=== PATIENT | female | born 1935 | race Caucasian/White ===

== ENCOUNTER → 2024-07-30 10:35 | Outpatient (REF) | payer MEDICARE, SELFPAY | LOC: RAD 10:35 | PROVIDERS: ATTENDING PHYSICIAN Nurse Practitioner Family | DX: M81.0 Age-related osteoporosis without current pathological fracture (principal); E01.1 Iodine-deficiency related multinodular (endemic) goiter | CPT/HCPCS: 76536 ==

== ENCOUNTER 2025-04-10 14:46 | Observation (INO) | payer MEDICARE, OTHER, SELFPAY ==
[2025-04-10] VITALS (11 sets, daily range): BP systolic 123–183; BP diastolic 61–102; PULSE 72–83; O2SAT 91; BMI 27.6
--- NOTE | 2025-04-10 07:02 | ED.GENMED ---
History of Present Illness
General
Chief Complaint: Fall
Time Seen by Provider: 04/10/25 07:02
History of Present Illness
History of Present Illness:
TIME OF INITIAL EVALUATION
- 7:05 AM
REVIEW OF OLD RECORDS
- The patient has a history of high blood pressure, diverticular disease, CKD, partial sigmoid resection related to perforation. The patient was admitted with hyponatremia in August 2023.
Note:
CHIEF COMPLAINT(S)
Pain following a fall.
HISTORY OF PRESENT ILLNESS
The patient is an 89-year-old female who presented to the emergency department with pain after experiencing a fall. She attempted to grab onto a dresser to prevent the fall but was unsuccessful. The fall resulted in pain primarily in the left hip
area. The patient reports bruising on the outside part of her hand. She denies any head trauma but describes ongoing neck pain on the left side, which is constant and extends to the shoulder. The patient experienced discomfort in her left hip, with
difficulty and increased pain upon attempting to move or lift it. She confirms mild pain on the right side but without significant symptoms. She appears generally uncomfortable and was noted to have dry lips, suggesting possible dehydration. She
states that she did not strike her head but she does have acute on chronic neck pain
PHYSICAL EXAM
- General: Appears uncomfortable
- Head: No craniofacial trauma
- C-spine: C-collar in place, some vague questionable tenderness to palpation of the posterior neck
- Back: Normal AROM thoracolumbar spine
- HEENT: Very dry oral mucosa, no blood
- Cardiovascular: No murmurs, normal heart rate, regular rhythm, No chest wall tenderness
- Pulmonary: No respiratory distress, breath sounds are clear and equal
- Abdomen: Soft with no peritoneal signs, no tenderness
- Neurologic: Good strength all extremities, no coordination deficits
- Psychiatric: Appropriate mental status, normal insight and judgement
- Extremities: Ecchymosis and tenderness noted to the lateral aspect of the left hand, markedly decreased active range of motion into flexion at the left hip, only mild pain with passive range of motion into rotation at the left hip
- Skin: No rash, no lesions
PLAN
1. Initiate an intravenous line for hydration due to apparent dehydration.
2. Obtain blood work to assess overall health and potential underlying conditions.
3. Conduct an X-ray on the hand, hip, and pelvis to evaluate for fractures or dislocations.
4. Perform a CT scan of the neck and head to rule out any potential injuries from the fall not visible on physical examination.
5. Administer pain relief medication with the addition of anti-nausea medication to prevent medication-induced nausea.
DIFFERENTIAL DIAGNOSIS
The Differential Diagnosis includes, in no particular order and is not limited to:
1. Hip fracture
2. Shoulder sprain or fracture
3. Bruising and contusions
4. Musculoskeletal strain
5. Dehydration
6. Neck strain or cervical injury
7. Pelvic fracture
8. Osteoporosis-related bone injury
9. Slight concussion (despite denial of head injury)
10. Generalized weakness due to age-related factors
I discussed with Dr. Bejarano who recommends weight-bear as tolerated and agrees with obtaining CT of the pelvis. The patient however cannot weight-bear at all and cannot even attempt to move off the stretcher.
RADIOLOGY
- X-ray shows left inferior pubic ramus fracture; I see no clear sign of fracture on the left hand and left wrist x-rays.
- CT imaging confirms superior and inferior pubic rami fracture on the left with extension toward the acetabulum
LABS
- White count 16.3, hemoglobin 11.1, chemistries relatively unremarkable
UPDATE
-SUMMARY OF ENCOUNTER
The patient, an 89-year-old female, was seen in the emergency department after experiencing a fall that resulted in pain predominantly in her left hip and neck area. Assessment revealed left-sided pelvic rami fractures and a left upper extremity
injury without fracture. She also displayed signs of potential dehydration. Her presentation included significant ongoing pain, particularly affecting her ability to utilize a walker effectively.
DISPOSITION
Discharge with follow-up recommendations.
ASSESSMENT
1. Left-sided pelvic rami fractures.
2. Significant musculoskeletal pain likely limiting the use of a walker.
3. Potential dehydration.
MANAGEMENT OF THE PATIENTS CARE WAS DISCUSSED WITH
Dr. Phillip, who recommended weight-bearing as tolerated with a walker and follow-up in four weeks. Consultation with physical therapy (PT) and occupational therapy (OT) was also initiated for further care management.
PLAN
1. Initiate intravenous hydration to address potential dehydration.
2. Pain management to address significant discomfort.
3. Consult PT and OT to assist with mobility and rehabilitation, given limited upper extremity function and the need for assistive devices.
4. Discharge with recommendations to weight-bear as tolerated using a walker.
5. Follow-up in four weeks to reassess the pelvic fractures and recovery progress.
INDEPENDENT REVIEW OF LABS AND INTERPRETATION OF TESTS
My independent interpretation of pelvic x-ray indicates left-sided pelvic rami fractures.
PATIENT EDUCATION AND COUNSELING
The patient was advised on the importance of pain management, staying hydrated, and utilizing a walker as per tolerance to mobilize safely. The care plan, including PT and OT consultations, was explained for effective rehabilitation.
FOLLOW-UP INSTRUCTIONS
The patient is to follow up in four weeks for reassessment of progress and evaluation of pelvic fractures.
MEDICATION RECONCILIATION
Pain relief medication and anti-nausea medication prescribed to manage discomfort and prevent nausea.
MEDICAL DECISION MAKING
-Complexity of Data Reviewed: Chronic conditions affecting care include potential osteoporosis-related bone injury and dehydration. Differential diagnoses considered include hip fracture, shoulder sprain, bruising and contusions, neck strain or
cervical injury, pelvic fracture, osteoporosis-related bone injury, and generalized weakness due to age.
-Data:
Category 1:
My independent interpretation of pelvic x-ray indicates left-sided pelvic rami fractures.
Category 3:
Discussion of management with Dr. Phillip concerning weight-bearing recommendations and coordinating PT and OT consultations.
-Risk:
Prescription medication management for pain relief. Consideration of Admission/Observation: Escalation of care including admission/observation was considered given the complexity and risk of the patients presenting complaint, exam findings, and
their underlying comorbidities. However, ultimately I feel the patient is safe for outpatient management with close follow-up. Reasoning: Work-up does not reveal any acute life/organ-threatening processes, patients symptoms are well-controlled upon
reevaluation, reexamination is reassuring, patient agreeable with discharge, reliable for follow-up.
DIAGNOSIS
1. Fracture of the pelvis, ICD-10: S32.89XA
2. Injury of the upper extremity, unspecified without fracture, ICD-10: T14.8
3. Dehydration, ICD-10: E86.[address] Phillip who initially recommended weight-bear as tolerated and can follow-up with her office in 4 weeks however the patient has rather debilitating pain. She did not want to try IV narcotic analgesia. We did try IV Toradol and IV
Tylenol. She could not work with PT OT due to severe pain. I did contact care management and there are no beds available at [facility]. The patient also expressed no willingness to go elsewhere at this time due to severe pain.
Past History
Past History
ED Past Medical History: Cancer (Skin), GERD, HTN, Hypercholesterolemia, Renal failure (Chronic kidney disease), Psychiatric (Anxiety, Depression) and Other (Osteoarthritis, spinal stenosis, psoriasis, cataracts, gout, hyponatremia, tuberculosis,
diverticulitis, UTI, Anemia, Diverticulitis, Vertigo)
ED Past Surgical History: Bowel resection (Sigmoid colon), Cholecystectomy and Other (Hernia repair)
Social History
Tobacco: Non-smoker
Alcohol: None
Drug: None
Personal:
Living: with family (Daughter)
Employment: Retired
Phy Exam
Physical Exam
Physical Exam:
See HPI
Course
Orders/Labs/Results
Orders:
Orders
04/10/25 07:03
CT Cervical Spine W/o Iv Contr Urgent
Comment:
Reason For Exam: fall
CT Head W/o Iv Contrast Urgent
Comment:
Reason For Exam: fall
Hip, Left 2-3 Views [CR Hip - LT w/wo Pel 2-3 Vw*] Urgent
Comment:
Reason For Exam: fall and pain
Include a pelvis x-ray?: Yes
04/10/25 07:21
CR Hand - Left Min 3 Views Urgent
Comment:
Reason For Exam: pain trauma
04/10/25 07:22
0.9% Sodium Chloride 500 ml [Nss] 500 ml IV BOLUS
HYDROmorphone [Dilaudid] 0.5 mg IV NOW STA
Ondansetron Injectable [Zofran] 4 mg IV NOW STA
04/10/25 07:24
CR Wrist - Left Min 3 Views Urgent
Comment:
Reason For Exam: trauma
04/10/25 07:46
Basic Metabolic Panel Urgent
Complete Blood Count/With Diff Urgent
04/10/25 07:57
Ketorolac [Toradol] 15 mg IV NOW STA
04/10/25 08:51
CT Pelvis W/o Iv Contrast Urgent
Comment:
Reason For Exam: eval pelvis fx
04/10/25 09:06
Case Management Consult ONCE
Case Management Consult: Discharge Planning
04/10/25 10:29
Physical Therapy Consult [Pt Eval And Treat] Urgent
Activity Level: Ambulate
04/10/25 10:39
OT Consult [Ot Eval And Treat] Urgent
Treatment: wbat
04/10/25 12:18
Acetaminophen 1000MG/100Ml [Ofirmev] 1,000 mg in 100 ml IV ONCE
Acetaminophen IV Indication:: ED Narcotic Naive Pt-ONCE
Abnormal Lab Results
04/10/25
07:46
WBC 16.3 H 10^3/uL
(4.8-10.8)
RBC 3.30 L 10^6/uL
(4.20-5.40)
Hgb 11.1 L g/dL
(12.0-16.0)
Hct 30.7 L %
(37.0-47.0)
MCH 33.6 H pg
(27.0-31.0)
Abs Immat Gran (auto) 0.2 H 10^3/uL
(0-0.05)
Absolute Neuts (auto) 13.8 H 10^3/uL
(1.4-6.5)
Absolute Monos (auto) 0.8 H 10^3/uL
(0.1-0.6)
Immature Gran % 1.1 H %
(0-0.5)
Neutrophils % 84.5 H %
(42.2-75.2)
Lymphocytes % 7.9 L %
(20.5-51.1)
Sodium 131 L mmol/L
(135-145)
BUN 25 H mg/dl
(7-17)
Glucose 126 H mg/dl
(70-99)
04/10/25 07:46
04/10/25 07:46
Vital Signs
Initial and Last Documented VS:
Initial Vital Signs
Temp Pulse Resp BP Pulse Ox
36.4 C 72 16 179/86 92
04/10/25 07:05 04/10/25 07:05 04/10/25 07:05 04/10/25 07:05 04/10/25 07:05
Last Documented Vital Signs
Temp Pulse Resp BP Pulse Ox
36.4 C 81 16 171/102 91
04/10/25 07:05 04/10/25 12:08 04/10/25 10:03 04/10/25 11:00 04/10/25 11:09
*Pulse Oximetry
Patient hypoxic: no
*Critical Care Note
Total Time (30-74mins, 75-104mins- exclusive of procedures): Not Applicable
ED Attending Note
-
Portions of this chart may have been created with voice recognition software.� Occasional wrong word or��sound alike� substitutions may have occurred due to the inherent limitations of voice recognition software.
Discharge Plan
Departure
Prescriptions:
No Action
rosuvastatin 5 MG tablet
5 mg PO QPM
allopurinol 100 MG tablet
100 mg PO DAILY
alprazolam [Xanax] 0.5 mg Tablet
0.25 mg PO NOON
mirtazapine 30 mg Tablet
30 mg PO HS 30 Days Qty: 30 0RF
furosemide 20 mg tablet
20 mg PO DAILY
gabapentin 100 mg Capsule
100 mg PO TID
lactulose 10 gram/15 mL Solution
10 - 15 g PO Q48H
labetalol 200 mg Tablet
200 mg PO BID
Referrals:
Fahad Zimmerman MD [Family Provider, Internal Medicine]
Interventions
Interventions:
*Risk Screen - Suicide Last Done: 04/10/25 07:07
*General Assessment Last Done: 04/10/25 07:07
*Neglect/Abuse Screening Last Done: 04/10/25 07:07
*ED- Fall Risk Assessment Last Done: 04/10/25 07:07
*ED COVID-19 Vaccine History Last Done: 04/10/25 07:07
ED-Musculoskeletal Assessment Last Done: 04/10/25 07:07
ED- Neurological Assessment Last Done: 04/10/25 07:07
ED-Skin Assessment Last Done: 04/10/25 07:08
Discharge Date and Time
Print Language: BURUNDIAN
[2025-04-10] MEDS: ZOFRAN 4 MG IV (07:51)
[2025-04-10] MEDS: NSS 500 IV (07:51)
[2025-04-10 07:53] LABS: Hematocrit 30.7 % (37.0-47.0); Hemoglobin 11.1 g/dL (12.0-16.0); Mean Corp Hgb Conc. 36.2 g/dL (33.0-37.0); Mean Corpuscular Volume 93.0 fL (81.0-99.0); Nucleated Red Blood Cells % 0 %; Platelet Count 174 10^3/uL (130-400); Red Cell Dist. Width 13.1 % (11.5-14.5)
[2025-04-10] MEDS: TORADOL 15 MG IV (08:01)
[2025-04-10 08:16] LABS: Blood Urea Nitrogen 25 mg/dl (7-17); Calcium 9.1 mg/dl (8.4-10.2); Carbon Dioxide 23 mmol/L (22-30); Chloride 103 mmol/L (98-107); Estimated Creatinine Clearance 54 ml/min; Glucose 126 mg/dl (70-99); Sodium 131 mmol/L (135-145); eGFR > 60.00
[2025-04-10] MEDS: OFIRMEV 100 IV (12:21)
--- NOTE | 2025-04-10 13:09 | CM ---
Addendum entered by Shu Cates 04/10/25 15:00:
Patient daughter seen at bedside, OBS/CAMERON form completed and scanned into chart by mechanical unit repairer. Patient daughter aware of need for SNF but she and daughter concerned about pain and requested to talk to nursing. CM will continue to follow for
discharge planning needs.
Plan; SNF
Original Note:
Patient seen at bedside in ED. Patient states that she fell as she dropped her cane and then fell over it. Patient lives in the independent apartment at [facility]. Patient states that he PCP is Dr. Christopher and she uses the [facility] in [place] for
her pharmacy needs.
Patient stated that she is so much pain she is not able to go anywhere other than the hospital. CM spoke with hema Harrison at [facility]. No beds currently available; Liaison recommended; [facility], [facility], [facility] or [facility]. CM spoke with ED physician and update provided. Patient would be private pay if discharged today, or if OBS/CAMERON. CM awaiting update from hospitalist. CM will call patient daughter and review plan. CM will continue to follow for discharge
planning needs.
Plan; SNF; for [facility] pending medical treatment plan
--- NOTE | 2025-04-10 13:37 | HPS.HSE ---
Family Physician
-
Family Physician: Fahad Zimmerman MD
Chief Complaint
-
hip pain
History of Present Illness
89-year-old female past medical history of chronic hyponatremia, hypertension, anxiety, CKD 3, insomnia, chronic pruritus, chronic neck pain, presenting with left hip pain after a fall. She attempted to grab onto a dresser to prevent the fall but
was unsuccessful. She has pain primarily in the left hip also has some bruising on the outside part of her hand. Denies any head trauma but has ongoing neck pain on the left side which is constant and extends to the shoulder. She has some mild
pain on the right side of her hip.
She does not smoke or drink alcohol.
Medical History
Past Medical History
Past Medical History: Reports Other (chronic hyponatremia, hypertension, anxiety, CKD 3, insomnia, chronic pruritus, chronic neck pain)
Past Surgical History: Reports None
Social History
Tobacco: Non-smoker
Alcohol: None
Drug: None
Family History
Family History: Not pertinent
Allergies / Home Medications
Allergies reflects when Allergies were last updated in [employer].
Home Medications with original date entered in [employer]
Allergy/Medication List:
Allergies
Allergy/AdvReac Type Severity Reaction Status Date / Time
diphenhydramine (From Allergy Unknown Verified 04/10/25 07:56
Benadryl)
latex Allergy Rash Verified 07/30/23 20:50
Opioids - Morphine Analogues Allergy Nausea / Verified 07/30/23 20:50
Vomiting
Home Medications
rosuvastatin 5 mg tablet 5 mg PO QPM High cholesterol 06/21/20
allopurinol 100 mg tablet 100 mg PO DAILY Gout 01/20/21
alprazolam 0.5 mg tablet (Xanax) 0.25 mg PO NOON Mental Health/Anxiety 06/12/22
mirtazapine 30 mg tablet 30 mg PO HS 30 days #30 tabs 06/15/22
furosemide 20 mg tablet 20 mg PO DAILY Fluid Retention/Swelling 07/05/23
gabapentin 100 mg capsule 100 mg PO TID Pain 08/01/23
lactulose 10 gram/15 mL oral solution 10 - 15 g PO Q48H Liver Issues 08/01/23
labetalol 200 mg tablet 200 mg PO BID Blood Pressure 08/23/23
Review of Systems
-
History Source: Patient
A 12 point ROS was completed and negative except as noted: Yes
Constitutional: Reports No Symptoms
EENT: Reports No Symptoms
Respiratory: Reports No Symptoms
Cardiac: Reports No Symptoms
Abdomen/GI: Reports No Symptoms
: Reports No Symptoms
Musculoskeletal: Reports See HPI
Skin: Reports No Symptoms
Neurological: Reports No Symptoms
Endocrine: Reports No Symptoms
Hematologic/Lymphatic: Reports No Symptoms
Psych: Reports No Symptoms
Physical Exam
Vital Signs
Vital Signs
Temp Pulse Resp BP Pulse Ox
97.6 F 81 16 177/75 91
04/10/25 07:05 04/10/25 12:08 04/10/25 10:03 04/10/25 13:00 04/10/25 11:09
Physical Exam
General: Well Developed, Well Nourished and No Apparent Distress
HEENT: NormoCephalic, Moist mucous membranes and Atraumatic
Respiratory: Clear
Cardiac: S1/S2 and Regular Rhythm; No Murmur or Rub
GI: Soft, Non Tender, Non Distended and Normal Bowel Sounds; No Organomegaly
Rectal: Deferred by Provider
Musculoskeletal: No Clubbing, No Cyanosis and No Edema
Skin: No Rash
Neuro: Nonfocal/grossly intact
Laboratory Results
-
04/10/25 07:46
04/10/25 07:46
Data Reviewed
-
Lab Data: Labs Reviewed by me
Old Records: Reviewed
Impression/Plan
-
IMPRESSION:
PLAN:
# Acute left superior inferior pubic rami fractures
# Possible right inferior pubic rami fracture
-Leukocytosis likely reactive
- Pelvic CT shows acute left superior and inferior pubic rami fractures with small extraperitoneal pelvic hematoma
- Tylenol, Toradol
-Try 0.25 mg of Dilaudid although patient has had nausea previously
- Ortho recommended weightbearing as tolerated
- PT OT
- Patient unable to be placed today
# Left wrist pain
- X-ray shows no fracture
# Acute on chronic neck pain
- CT head and CT cervical spine shows no acute abnormality
# Stable mild T4 compression fracture
#Hypovolemia
-dry on exam, IV fluids given
Chronic hyponatremia
-Sodium stable at 131
Essential hypertension
- Continue labetalol
Anxiety
- Continue mirtazapine, Xanax
CKD 3
- Renal function baseline
Gout
- Continue allopurinol
Insomnia
Chronic pruritus
Chronic neck pain
Full code
DVT prophylaxis heparin
Regular diet
[2025-04-10] MEDS: TORADOL 10 MG IV (16:57)
[2025-04-10] MEDS: HEPARIN 5000 UNITS SC (20:37)
[2025-04-10] MEDS: TRANDATE 200 MG PO (20:37)
[2025-04-10] MEDS: NEURONTIN 100 MG PO (20:37)
[2025-04-10] MEDS: AMBIEN 10 MG PO (21:24)
[2025-04-10] MEDS: XANAX 0.125 MG PO (21:24)
[2025-04-10] MEDS: REMERON 30 MG PO (21:24)
[2025-04-11] MEDS: TORADOL 10 MG IV (02:13)
[2025-04-11 06:51] LABS: Hematocrit 29.3 % (37.0-47.0); Hemoglobin 10.4 g/dL (12.0-16.0); Mean Corp Hgb Conc. 35.5 g/dL (33.0-37.0); Mean Corpuscular Volume 95.1 fL (81.0-99.0); Nucleated Red Blood Cells % 0 %; Platelet Count 152 10^3/uL (130-400); Red Cell Dist. Width 13.3 % (11.5-14.5)
[2025-04-11 07:16] LABS: ALT (SGPT) 16 U/L (0-35); AST (SGOT) 27 U/L (14-36); Albumin 3.8 g/dl (3.5-5.0); Alkaline Phosphatase 73 U/L (38-126); Blood Urea Nitrogen 26 mg/dl (7-17); Calcium 8.7 mg/dl (8.4-10.2); Carbon Dioxide 24 mmol/L (22-30); Chloride 101 mmol/L (98-107); Estimated Creatinine Clearance 38 ml/min; Glucose 115 mg/dl (70-99); Potassium 4.5 mmol/L (3.5-5.1); Sodium 131 mmol/L (135-145); Total Protein 6.3 g/dl (6.3-8.2); eGFR 54.19
[2025-04-11] MEDS: LASIX 20 MG PO (07:20)
[2025-04-11] MEDS: ZYLOPRIM 100 MG PO (07:20)
[2025-04-11] MEDS: TRANDATE 200 MG PO (07:20)
[2025-04-11] MEDS: NEURONTIN 100 MG PO (07:20)
[2025-04-11] MEDS: HEPARIN 5000 UNITS SC (07:20)
[2025-04-11] MEDS: CRESTOR 5 MG PO (07:20)
[2025-04-11] MEDS: DUPHALAC/CHRONULAC 10 GRAMS PO (07:21)
[2025-04-11 07:30] VITALS: BP 155/78
--- NOTE | 2025-04-11 09:05 | W.PN.HOSP.TC ---
Addendum entered and electronically signed by Jarad Lewis MD 04/11/25 13:29:
Total time spent on d/c = 31 min. This included today's physical exam, progress note, review of laboratory and diagnostic data, preparation of discharge documents and prescriptions, and discussions about the pt's hospital course and discharge plan
with the patient and other medical center representative involved in the patient's care.
Original Note:
Today's Communication/Plan
-
d/c
Assessment / Plan
Assessment / Plan
Gen: NAD, Awake and alert
Eyes: EOMI, PERRLA, no scleral icterus.
Neck: supple.
CV: RRR, +S1/S2, no m/r/g.
Resp: CTAB, no rales, wheezes, or rhonchi.
Abd: +BS, soft, NT, ND
Skin: No rashes.
Neuro: CN 2-12 intact, non-focal.
Psych: Normal mood and affect.
CT pelvis: Acute left superior and inferior pubic ramus bone fractures. New. Associated small extraperitoneal pelvic hematoma. New. Possible right inferior pubic ramus bone fracture. Limited evaluation. Patient motion artifact. New. Clinical
correlation recommended. ADDENDUM: Best seen on coronal images, there is suggestion of a fracture of the left superior pubic ramus bone laterally, at the junction with the acetabulum. There is mild associated sclerosis, the fracture line is less
sharp and margins are more smooth. This may be a subacute fracture. Clinical correlation recommended.
Acute left superior and inferior pubic rami fractures with small extraperitoneal pelvic hematoma:
-with possible right inferior pubic rami fracture
-Leukocytosis was reactive and has resolved
-ortho recommended weightbearing as tolerated
-PT/OT
-pt was unable to be placed from the ER
Hypovolemia:
-admitting physician state pt was dry on exam yet lasix continued
-s/p 500cc NS on admission
-appears euvolemic at this moment, cont Lasix with h/o hyponatremia
Other problems:
Left wrist pain: X-ray without fx
Acute on chronic neck pain: CT head and C-spine without acute abnormality
Stable mild T4 compression fracture
Chronic hyponatremia, mild, trend
Essential HTN: cont BB
Anxiety: cont mirtazapine/Xanax
Gout: cont allopurinol
Insomnia
Chronic pruritus
Chronic neck pain
FULL/heparin
No medical indication for hospitalization, remains medically cleared for discharge. Case management aware.
Anticipated Discharge: Today
Subjective/Interval History
-
Date of Service: April 11, 2025
No new complaints.
Objective Data
-
Labs:
Laboratory Results
04/11/25
06:28
WBC 8.5
Hgb 10.4 L
Hct 29.3 L
Plt Count 152
Sodium 131 L
Potassium 4.5
Chloride 101
Carbon Dioxide 24
BUN 26 H
Creatinine 1.0
Glucose 115 H
Calcium 8.7
Total Bilirubin 0.7
AST 27
ALT 16
Alkaline Phosphatase 73
Vital Signs:
Vital Signs
Temp Pulse Resp BP Pulse Ox
98.1 F 84 18 155/78 93
04/11/25 07:30 04/11/25 07:30 04/11/25 07:30 04/11/25 07:30 04/11/25 07:30
I&O
04/10/25 04/11/25 04/12/25
06:59 06:59 06:59
Intake Total 480 / 480
Output Total 250 / 250
Balance 230 / 230
--- NOTE | 2025-04-11 11:13 | CM ---
Addendum entered by An Bauer 04/11/25 15:03:
transport 1800 set, notified Roseanne at [facility]
notified daughter Yumiko
Addendum entered by An Bauer 04/11/25 13:30:
patient agreeable
transport forms on chart
Addendum entered by An Bauer 04/11/25 13:14:
spoke with Roseanne at [facility] & they can accept patient today, bed available
Roseanne spoke with daughter Yumiko regarding financial. Daughter agreeable
tt hospitalist
PLAN: [facility]
Report #: [phone] ext [phone]
Fax #: [phone]
Original Note:
Patient seen at bedside and spoke to daughter
OBS status- CAMERON form signed yesterday
Discussed private pay for SNF with daughter Yumiko & patient
CM reached out to Cindy regarding [facility] waiver - stated does not qualify
Spoke with Christy no beds available currently
PT rec SNF
Referrals sent out in [facility]
PLAN: SNF, once bed secured
[2025-04-11 11:37] VITALS: BP 139/100; PULSE 79; O2SAT 92
[2025-04-11] MEDS: XANAX 0.125 MG PO (12:31)
--- NOTE | 2025-04-11 14:12 | W.DCSUMMARY ---
Discharge Summary
Discharge Data
Date of Admission: 04/10/25
Date of Discharge: 04/11/25
-
Pending Results: No
Hospital Course
Primary diagnoses:
Acute left superior and inferior pubic rami fractures with small extraperitoneal pelvic hematoma
Ambulatory dysfunction
Fall
Secondary diagnoses:
Left wrist pain
Acute on chronic neck pain
Stable mild T4 compression fracture
Chronic hyponatremia
Essential hypertension
Anxiety
Gout
Insomnia
Chronic pruritus
Chronic neck pain
Consultants:
None
Imaging:
CT pelvis: Acute left superior and inferior pubic ramus bone fractures. New. Associated small extraperitoneal pelvic hematoma. New. Possible right inferior pubic ramus bone fracture. Limited evaluation. Patient motion artifact. New. Clinical
correlation recommended. ADDENDUM: Best seen on coronal images, there is suggestion of a fracture of the left superior pubic ramus bone laterally, at the junction with the acetabulum. There is mild associated sclerosis, the fracture line is less
sharp and margins are more smooth. This may be a subacute fracture. Clinical correlation recommended.
Hospital course: 89-year-old female who was brought into the hospital yesterday after presenting with a chief complaint of left hip pain after a fall as outlined in the H&P done on admission. The patient was to be placed from the ER but was unable
to be placed. Therefore she was brought into the hospital for ongoing disposition efforts. Pertinent imaging above. She had a reactive leukocytosis that resolved. On admission orthopedics recommended weightbearing as tolerated. She was seen by
physical therapy and Occupational Therapy. She was discharged to a custodial facility medically stable condition
Discharge Plan
-
Patient Disposition: Skilled Nursing/SNF
Discharge Diagnosis/Procedures: Ambulatory dysfunction, fall
Condition: Good
Diet: Regular
Activity: With assistance
Driving Restrictions: No driving
Blood Work: CBC and BMP in 1 week, prescription from PCP
Referrals:
Fahad Zimmerman MD [Family Provider, Internal Medicine] - in less than 1 week
Prescriptions:
Continued
rosuvastatin 5 MG tablet
5 mg PO DAILY
allopurinol 100 MG tablet
100 mg PO DAILY
mirtazapine 30 mg Tablet
30 mg PO HS 30 Days Qty: 30 0RF
furosemide 20 mg tablet
20 mg PO DAILY
gabapentin 100 mg Capsule
100 mg PO BID
lactulose 10 gram/15 mL Solution
10 g PO DAILY
labetalol 200 mg Tablet
200 mg PO BID
alprazolam [Xanax] 0.25 mg Tablet
0.125 mg PO BID@1200,2200
zolpidem [Ambien CR] 12.5 mg Tablet,Ext Release Multiphase
12.5 mg PO HS
Discharge Orders:
Discharge Patient (As Directed); Ordered 04/11/25
Ordered By: Jarad Lewis
Discharge Date and Time
Print Language: FRENCH
[2025-04-11 15:30] VITALS: BP 141/86
== END 2025-04-11 18:22 ==
LOC: 3 WEST ACU 14:46
PROVIDERS: ADMITTING PHYSICIAN Hospitalist; ATTENDING PHYSICIAN Internal Medicine; EMERGENCY PHYSICIAN Emergency Medicine; FAMILY PHYSICIAN Internal Medicine
DX: S32.512A Fracture of superior rim of left pubis, initial encounter for closed fracture (principal); S32.592A Other specified fracture of left pubis, initial encounter for closed fracture; S36.81XA Injury of peritoneum, initial encounter; M25.532 Pain in left wrist; R26.2 Difficulty in walking, not elsewhere classified; W18.30XA Fall on same level, unspecified, initial encounter; E87.1 Hypo-osmolality and hyponatremia; M54.2 Cervicalgia; I12.9 Hypertensive chronic kidney disease with stage 1 through stage 4 chronic kidney disease, or unspecified chronic kidney disease; N18.30 Chronic kidney disease, stage 3 unspecified; G47.00 Insomnia, unspecified; Z79.899 Other long term (current) drug therapy; G89.29 Other chronic pain; E86.1 Hypovolemia; F41.9 Anxiety disorder, unspecified; D72.829 Elevated white blood cell count, unspecified; M10.9 Gout, unspecified
CPT/HCPCS: 70450; 72125; 72192; 73110; 73130; 73502; 80048; 80053; 85025; 96361; 96374; 96375; 97530; 99285; G0378